=== PATIENT | female | born 1970 | race Two or more races ===

== ENCOUNTER 2021-05-25 11:14 | Outpatient (CLI) | payer BC ==
[2021-05-25 11:58] LABS: BASOPHILS % (AUTO) 0.5 % (0.0-2.0); EOSINOPHILS % (AUTO) 2.2 % (0.0-6.0); HEMATOCRIT 44 % (33-45); HEMOGLOBIN 14.7 g/dL (11.5-14.8); LYMPHOCYTES # (AUTO) 1.4 K/uL (0.8-4.8); LYMPHOCYTES % (AUTO) 29.7 % (20.0-44.0); MEAN CORPUSCULAR HGB CONC 33 g/dl (31.0-36.0); MEAN CORPUSCULAR VOLUME 89 fL (82-100); MONOCYTES # (AUTO) 0.3 K/uL (0.1-1.30); MONOCYTES % (AUTO) 6.1 % (2.0-12.0); NEUTROPHILS # (AUTO) 2.8 K/uL (1.8-8.9); NEUTROPHILS % (AUTO) 61.5 % (43.0-81.0); PLATELET COUNT (AUTO) 235 K/uL (150-450); RED BLOOD CELL COUNT(AUTO) 5.01 MIL/uL (4.0-5.2); WHITE BLOOD COUNT (AUTO) 4.6 K/uL (4.3-11.0)
[2021-05-25 12:32] LABS: ALBUMIN 4.3 g/dL (3.4-5.0); BILIRUBIN,TOTAL 0.6 mg/dL (0.2-1.0); CALCIUM, SERUM 8.8 mg/dL (8.5-10.1); CREATININE 0.7 mg/dL (0.6-1.3); POTASSIUM 3.9 mmol/L (3.5-5.1); TOTAL PROTEIN, SERUM 7.8 g/dL (6.4-8.2)
[2021-05-25 12:44] LABS: THYROID STIMULATING HORMONE 1.73 uIU/mL (0.358-3.74)
[2021-05-26 06:07] LABS: FOLLICLE STIMULATION HORMONE 57.2 mIU/mL (.); PROLACTIN 6.5 ng/mL (4.8-23.3); T3, FREE 3.1 pg/mL (2.0-4.4); THYROID PEROXIDASE (TPO) AB <8 IU/mL (0-34)
== END 2021-05-25 23:59 | disposition home or self-care (01) ==
LOC: LAB 11:14
PROVIDERS: ATTEND Legal Medicine
DX: E03.9 Hypothyroidism, unspecified (principal); E55.9 Vitamin D deficiency, unspecified; E05.90 Thyrotoxicosis, unspecified without thyrotoxic crisis or storm; G47.9 Sleep disorder, unspecified; R00.2 Palpitations
CPT/HCPCS: 36415; 80053-TC; 80061-TC; 82306; 83001; 84146; 84439-TC; 84443-TC; 84481; 85025-TC; 86376; 86800